=== PATIENT | female | born 1940 | race Caucasian/White ===

== ENCOUNTER 2017-03-26 23:33 | Emergency (ER) | payer MEDICARE, BC ==
[2017-03-27] MEDS ORDERED: SODIUM CHLORIDE 0.9% FLUSH 10 ML SOL IV PRN (00:12)
[2017-03-27 00:15] LABS: BASOPHILS % (AUTO) 1 % (0-3); EOSINOPHILS % (AUTO) 0 % (0-9); HEMATOCRIT 34 % (35-47); MEAN CORPUSCULAR HGB CONC 34.5 gm/dl (32.0-36.0); MEAN CORPUSCULAR VOLUME 88 fL (81-99); MONOCYTES % (AUTO) 11.2 % (0-12); NEUTROPHILS % (AUTO) 81.8 % (37-80)
[2017-03-27 00:30] LABS: ALBUMIN 3.6 gm/dl (3.4-5.0); ALT 18 IU/L (14-63); CALCIUM 8.5 mg/dl (8.5-10.1); GLOM FILT RATE 50 mL/min (>60); POTASSIUM 3.8 mMol/L (3.5-5.1); SODIUM 137 mMol/L (136-145)
[2017-03-27 01:01] LABS: APPEARANCE,URINE Clear; BILIRUBIN,URINE NEGATIVE (NEGATIVE); COLOR,URINE Yellow; GLUCOSE, URINE (UA) TRACE (NEGATIVE); KETONES,URINE TRACE (NEGATIVE); LEUKOCYTE ESTERASE ,URINE NEGATIVE (NEGATIVE); NITRATE,URINE NEGATIVE (NEGATIVE); OCCULT BLOOD,URINE NEGATIVE (NEG-TRACE); PH,URINE 5.5; UROBILINOGEN,URINE 0.2 (0.2-1.0 EU)
[2017-03-27 01:11] LABS: RBC,URINE 0-2 (0-3AV/HPF)
[2017-03-27 01:17] VITALS: TEMP 97.9
[2017-03-27 02:08] VITALS: BP 154/84; PULSE 102; RESP 23; O2SAT 96
== END 2017-03-27 01:43 | disposition home or self-care (01) | DRG 312 ==
LOC: ED 23:33 → SUPCPDRO 23:33 → ED 03-27 01:43
DX: R55 Syncope and collapse (principal); F03.90 Unspecified dementia, unspecified severity, without behavioral disturbance, psychotic disturbance, mood disturbance, and anxiety; R53.1 Weakness; R11.10 Vomiting, unspecified; R42 Dizziness and giddiness; R32 Unspecified urinary incontinence; R00.0 Tachycardia, unspecified
CPT/HCPCS: 36415; 80053; 81001; 83880; 84484; 85025; 87088; 93005; 99283; 99285

== ENCOUNTER 2018-02-11 17:24 | Emergency (ER) | payer MEDICARE, BC ==
[2018-02-11 17:51] VITALS: PULSE 78; RESP 20; TEMP 97; O2SAT 98
[2018-02-11 18:38] VITALS: BP 127/74
== END 2018-02-11 19:30 | disposition home or self-care (01) | DRG 313 ==
LOC: ED 17:24
DX: R07.9 Chest pain, unspecified (principal); I10 Essential (primary) hypertension; E11.9 Type 2 diabetes mellitus without complications; R06.02 Shortness of breath
CPT/HCPCS: 36415; 82962; 84484; 93005; 99284